=== PATIENT | male | born 1940 | race Caucasian/White ===

== ENCOUNTER 2016-07-21 16:17 | Inpatient (IN) ==
--- NOTE | 2016-07-21 16:37 | Emergency Department Note ---
Disposition Clinical Impression: Ischemia of extremity Pain in extremity Qualifiers: Extremity pain location: lower leg Laterality: left Qualified Code(s): M79.662 - Pain in left lower leg Disposition: Admitted As Inpatient Condition: Critical Extremity Problem HPI - General Chief complaint: ED Extremity Problem,Nontraumatic Stated complaint: R/O DVT L leg Time Seen by Provider: 07/21/16 16:29 Source: patient, EMS Limitations: no limitations Nursing Notes Reviewed: Yes Vital Signs Reviewed: Yes - History of Present Illness HPI Narrative: Mr. Hancock, a 76yo male, presents from [place] via EMS with concern of a left lower extremity pain, cyanosis, and cold. Onset 5 days ago. PMH: COPD, peripheral artery disease, obstructive sleep apnea, peripheral neuropathy, pain disorder, anxiety, antisocial personality disorder, hypertension, chronic opioid dependence, lumbar degenerative joint disease, BPH. No history of ACS or CJD. Patient notes he was recently diagnosed with lung cancer. He is currently in the early stages of being worked up and no chemotherapy plan has been established yet. PSH: bilateral femoral-popliteal bypass performed at this facility by Dr. García. Habits: Current every smoker; one pack per day 60 years Antiplatelet: Aspirin 81 mg by mouth daily. Anticoagulant: None ROS: Positive:Lt LE pain with cyanosis Neg: Fever, chills, nausea, vomiting, chest pains, palpitations, new back pains , unusual dyspnea, hemoptysis, hematochezia, melena Pain Scale: 8 - Related Data Home Medications Medication Instructions Recorded Confirmed Albuterol Neb [Proventil Neb] 2.5 mg IH Q8H 07/21/16 07/21/16 Albuterol Sulfate [Albuterol 2 puff IH QID PRN 07/21/16 07/21/16 Inhaler] Ammonium Lactate [Macarena-Hydrolac] 1 appl TP DAILY 07/21/16 07/21/16 Aspirin Enteric Coated [Aspirin EC] 81 mg PO DAILY 07/21/16 07/21/16 Bisacodyl [Dulcolax] 10 mg PO TID PRN 07/21/16 07/21/16 Budesonide/Formoterol 160/4.5 2 puff IH BIDR 07/21/16 07/21/16 [Symbicort 160/4.5] Diclofenac Sodium [Voltaren] 2 gm TP BID PRN 07/21/16 07/21/16 Furosemide [Lasix] 20 mg PO DAILY 07/21/16 07/21/16 Gabapentin [Neurontin] 600 mg PO TID 07/21/16 07/21/16 Lisinopril [Zestril] 40 mg PO DAILY 07/21/16 07/21/16 Oxycodone HCl [Roxicodone 30 MG 30 mg PO Q6HR PRN 07/21/16 07/21/16 Immed Release] Sildenafil Citrate [Viagra] 100 mg PO AD PRN 07/21/16 07/21/16 Tamsulosin [Flomax] 0.8 mg PO DAILY 07/21/16 07/21/16 Terbinafine HCl [Terbinafine] 1 appl TP BID PRN 07/21/16 07/21/16 Tiotropium [Spiriva] 18 mcg IH QAM 07/21/16 07/21/16 Allergies Allergy/AdvReac Type Severity Reaction Status Date / Time fentanyl Allergy See Verified 07/21/16 16:22 Comments morphine Allergy See Verified 07/21/16 16:22 Comments All systems ED: reviewed and negative except as stated. Past Medical History - Past Medical History Medical history: Reports: COPD, hypertension, peripheral artery disease Psychiatric history: Reports: anxiety - Social History Smoking Status: Current every day smoker Smokeless Tobacco Status: No Alcohol use: Reports: none Drug use: Reports: none Physical Exam Vital Signs Reviewed General: Patient is alert, oriented, and in no acute distress. HEENT: No facial asymmetry. Head is normocephalic and atraumatic. PERRLA. Trachea midline. Cardiovascular: Heart regular rate and rhythm without clicks, rubs, gallops, or murmurs. No JVD. PMI nondisplaced. Bilateral radial pulses 2/4. Right posterior tibial pulse 2/4. Left posterior tibial, distal cells pedis, and popliteal pulses unable to palpate. Left femoral pulse week. Left toes have 6 second capillary refill. Left lower extremity is cool to touch from toes to mid calf. Respiratory: Symmetric chest rise with good respiratory effort. Prolonged expiratory phase. Bilateral breath sounds have scattered diffuse wheezes without crackles or rhonchi. Abdomen: Bowel sounds present normoactive x-4 quadrants. Abdomen is soft, nondistended, and nontender. No organomegaly noted. Psych: Patient's affect is appropriate for situation. - General Limitations: no limitations General appearance: alert, in no apparent distress Course Course Narrative: [facility] brachial 125, right dorsalis pedis 118, right posterior tibial 126-right DYLAN 0.93. Left brachial 136, left Dorsalis pedis unmeasurable, left posterior tibial on measurable. No lab work or imaging studies provided by the [facility]. Chart check required digging into PCI to show 2014 bilateral femoral-popliteal bypass performed by Dr. Guillen. Patient is agreeable on to admission if needed. 16:45-spoke with [facility] relations vice president vascular surgery, Dr. García, who agrees to accept the patient to a 2N bed. He requests CT a aorta with runoff and weight-based heparin. 1800-patient's return from CT scan. He notes his left lower extremity pain is worse after the IV contrast. Initial dose of Dilaudid, he notes, did not improve his pain. We will re-dose. This is likely due to his chronic opiate use. Vital Signs Temperature 98.2 F 07/21/16 16:23 Pulse Rate 65 07/21/16 16:23 Respiratory Rate 17 07/21/16 16:23 Blood Pressure 109/84 07/21/16 16:23 O2 Sat by Pulse Oximetry 95 07/21/16 16:23 Temperature 97.8 F 07/21/16 18:53 Pulse Rate 56 07/21/16 18:53 Respiratory Rate 17 07/21/16 18:55 Blood Pressure 132/76 07/21/16 18:55 O2 Sat by Pulse Oximetry 95 07/21/16 18:53 Oxygen Delivery Oxygen Delivery Nasal Cannula Extremity Problem, Nontraumati - Medical Records Medical records reviewed: Yes I reviewed the patient's medical records. - Lab Data Result diagrams: 07/21/16 16:57 07/21/16 16:57 Lab Results 07/21/16 07/21/16 07/21/16 Range/Units 16:57 16:57 16:57 WBC 8.4 (4.3-11.1) K/mcL RBC 4.31 (4.19-5.50) M/mcL Hgb 13.7 (12.9-16.9) g/dL Hct 40.8 (37.5-50.1) % MCV 94.7 (83.0-100.0) fL MCH 31.8 (28.0-33.3) pg MCHC 33.6 (31.6-35.5) g/dL RDW 11.8 (11.5-14.5) % Plt Count 226 (140-400) K/mcL MPV 9.6 (9.4-12.4) fL Immature Gran % 0.2 (0-4) % Seg Neutrophils % 53.0 % Lymphocytes % 35.3 % Monocytes % 7.7 % Eosinophils % 3.2 % Basophils % 0.6 % Neutrophils # 4.5 (1.6-8.9) K/mcL Lymphocytes # 3.0 (0.6-4.6) K/mcL Monocytes # 0.7 (0.0-1.3) K/mcL Eosinophils # 0.3 (0.0-0.6) K/mcL Basophils # 0.1 (0.0-0.2) K/mcL PT 11.6 (9.4-12.1) Seconds INR 1.1 APTT 28.2 (26.0-36.0) Seconds Sodium 142 (136-145) mEq/L Potassium 4.0 (3.5-4.5) mEq/L Chloride 106 (98-109) mEq/L Carbon Dioxide 28 (19-29) mEq/L BUN 30 H (8-26) mg/dL Creatinine 1.39 H (0.72-1.25) mg/dL Est GFR ( Amer) > 60 (> 60) Est GFR (Non-Af Amer) 50 L (> 60) BUN/Creatinine Ratio 22 (6-26) Glucose 115 H (70-99) mg/dL Calculated Osmolality 301 H (280-300) Calcium 9.2 (8.6-10.8) mg/dL - EKG Data EKG attestation: Yes I reviewed and interpreted this EKG. EKG results narrative: EKG dated O2 08/09/1715: 21 interpreted as sinus rhythm with a rate of 62. Normal intervals. 74, QRS 83, QT/QTc 389/395. Normal axis. Nonspecific ST T changes. No previous EKG for comparison. Attestation Statement - Attestation Attestation: I examined this patient and my medical decision-making was reviewed with the FULFILLMENT COORDINATOR/PA/Advanced Practice Nurse/Resident Physician. I agree with the documented findings, disposition and treatment plan as described except to the extent set forth below. pulseless left leg. [facility] resident spoke to vascular surgeon dr garcía. he has accepted. will start heparin. obtain CTA aortogram with run off.
[2016-07-21] MEDS ORDERED: *HR* HYDROmorphone (PF) 1 MG/ML SYRINGE IVP ONE ×2 (16:43→17:57)
[2016-07-21] MEDS ORDERED: Heparin 25,000 UNIT/500 ML D5W 25,000 UNIT/500 ML MLS IVC SCH ×2 (16:45→18:32)
[2016-07-21 17:04] LABS: Basophils # 0.1 K/mcL (0.0-0.2); Basophils % 0.6 %; Eosinophils # 0.3 K/mcL (0.0-0.6); Eosinophils % 3.2 %; Hematocrit 40.8 % (37.5-50.1); Hemoglobin 13.7 g/dL (12.9-16.9); Immature Granulocytes % 0.2 % (0-4); Lymphocytes % 35.3 %; Mean Corpuscular HGB Conc 33.6 g/dL (31.6-35.5); Mean Corpuscular Hemoglobin 31.8 pg (28.0-33.3); Mean Corpuscular Volume 94.7 fL (83.0-100.0); Mean Platelet Volume 9.6 fL (9.4-12.4); Monocytes # 0.7 K/mcL (0.0-1.3); Monocytes % 7.7 %; Neutrophils # 4.5 K/mcL (1.6-8.9); Platelet Count 226 K/mcL (140-400); Red Blood Count 4.31 M/mcL (4.19-5.50); Red Cell Distribution Width 11.8 % (11.5-14.5)
[2016-07-21 17:13] LABS: INR 1.1; Prothrombin Time 11.6 Seconds (9.4-12.1)
[2016-07-21 17:16] LABS: Activated Partial Thrombo Time 28.2 Seconds (26.0-36.0); BUN/Creatinine Ratio 22 (6-26); Blood Urea Nitrogen 30 mg/dL (8-26); Calcium 9.2 mg/dL (8.6-10.8); Carbon Dioxide 28 mEq/L (19-29); Chloride 106 mEq/L (98-109); Glucose 115 mg/dL (70-99); Osmolality,Calculated 301 (280-300); Sodium 142 mEq/L (136-145); eGFR For African Americans > 60 (> 60); eGFR For Non-African Americans 50 (> 60)
--- NOTE | 2016-07-21 17:30 | Vascular/Endovascular H&P ---
Date of Encounter: 07/21/16 Time of Encounter: 17:20 Assessment and Plan (1) Ischemia of extremity Current Visit: Yes Status: Acute The patient presents with what appears to be an acute on chronic left lower extremity limb ischemia. He also has had left femoral infrageniculate popliteal bypass. We will plan on placing him on weight dosed heparin as well as CTA aortogram with runoff to assist in operative planning. History of Present Illness Chief complaint: Left leg pain HPI: Mr. Hancock is a 76 year old male Who underwent left infrageniculate femoral-popliteal bypass in 2014. He was seen during the postoperative period in the office and the graft was patent. He states that 2-3 days ago he developed pain in this left lower extremity. Today he presents to the emergency department with a [facility] It is noted that he has recently been diagnosed with lung cancer and is currently undergoing workup and staging. On physical examination his left lower extremity is cold from the mid calf down. He is able to move his toes. There is no tissue loss. He now presents for evaluation of critical limb ischemia. This appears to be acute on chronic Past Med Surg Social Fam HX - Past Medical History Medical history: COPD, hypertension, peripheral artery disease Psychiatric history: anxiety - Past Surgical History Surgical History: other (Left femoral infrageniculate popliteal bypass) - Social History Smoking Status: Current every day smoker Smokeless Tobacco Status: No Alcohol use: none Drug use: none Medications and Allergies Albuterol Neb [Proventil Neb] 2.5 mg IH Q8H 07/21/16 [History] Albuterol Sulfate [Albuterol Inhaler] 2 puff IH QID PRN 07/21/16 [History] Ammonium Lactate [Macarena-Hydrolac] 1 appl TP DAILY 07/21/16 [History] Aspirin Enteric Coated [Aspirin EC] 81 mg PO DAILY 07/21/16 [History] Bisacodyl [Dulcolax] 10 mg PO TID PRN 07/21/16 [History] Budesonide/Formoterol 160/4.5 [Symbicort 160/4.5] 2 puff IH BIDR 07/21/16 [ History] Diclofenac Sodium [Voltaren] 2 gm TP BID PRN 07/21/16 [History] Furosemide [Lasix] 20 mg PO DAILY 07/21/16 [History] Gabapentin [Neurontin] 600 mg PO TID 07/21/16 [History] Lisinopril [Zestril] 40 mg PO DAILY 07/21/16 [History] Oxycodone HCl [Roxicodone 30 MG Immed Release] 30 mg PO Q6HR PRN 07/21/16 [ History] Sildenafil Citrate [Viagra] 100 mg PO AD PRN 07/21/16 [History] Tamsulosin [Flomax] 0.8 mg PO DAILY 07/21/16 [History] Terbinafine HCl [Terbinafine] 1 appl TP BID PRN 07/21/16 [History] Tiotropium [Spiriva] 18 mcg IH QAM 07/21/16 [History] Allergies fentanyl Allergy (Verified 07/21/16 16:22) See Comments morphine Allergy (Verified 07/21/16 16:22) See Comments All Systems Review: A 10-system review of systems was performed and is negative for pertinent findings except as documented above in the HPI. Exam General: Present: No Apparent Distress HEENT: Present: Trachea midline, Pupils equal Cardiac: Present: Reg Rate and Rhythm, Normal S1 and S2, No Murmur Lungs: Present: Other (Moderate decrease in lung volumes and wheezing in both lung rubi) Neuro: Present: Alert and responsive, No focal deficits noted Abdomen: Present: Soft, Non-tender Vascular: Present: Other (Left foot cool and pale) Results 07/21/16 16:57 07/21/16 16:57
[2016-07-21] MEDS ORDERED: *HR* Heparin 5,000 UNIT/ML VIAL IVP PRN ×2 (18:32)
[2016-07-21] MEDS ORDERED: Naloxone 0.4 MG/ML INJ IVP PRN (18:32)
[2016-07-21] MEDS ORDERED: *HR* Heparin 5,000 UNIT/ML VIAL IVP ONE (18:32)
[2016-07-21] MEDS ORDERED: Albuterol 2.5 MG/3 ML NEBULIZER IH SCH (18:32)
[2016-07-21] MEDS ORDERED: *HR* HYDROcodone/Acet 5/325 mg TABLET PO PRN (18:32)
[2016-07-21] MEDS ORDERED: 0.9 % Sodium Chloride 1,000 ML IVC SCH (18:32)
[2016-07-21] MEDS: *HR* HYDROmorphone (PF) 1 MG/ML SYRINGE IVP PRN ×2 (20:25→23:45)
[2016-07-21] MEDS: Gabapentin 300 MG CAPSULE PO SCH (20:26)
[2016-07-21] MEDS: Albuterol 2.5 MG/3 ML NEBULIZER IH SCH (23:25)
[2016-07-21] MEDS: Budesonide/Formoterol 160/4.5 MDI IH SCH (23:25)
[2016-07-21 23:56] LABS: Activated Partial Thrombo Time 210.1 Seconds (26.0-36.0)
[2016-07-22 00:17] LABS: Heparin anti-factor XA UFH 1.12 IU/mL (0.30-0.70)
[2016-07-22] MEDS: *HR* HYDROmorphone (PF) 1 MG/ML SYRINGE IVP PRN ×6 (01:20→09:00)
[2016-07-22 01:53] LABS: Basophils % 0.5 %; Eosinophils # 0.3 K/mcL (0.0-0.6); Eosinophils % 3.9 %; Hematocrit 38.7 % (37.5-50.1); Immature Granulocytes % 0.4 % (0-4); Mean Corpuscular HGB Conc 33.6 g/dL (31.6-35.5); Mean Corpuscular Hemoglobin 31.7 pg (28.0-33.3); Mean Corpuscular Volume 94.4 fL (83.0-100.0); Mean Platelet Volume 9.4 fL (9.4-12.4); Monocytes # 0.7 K/mcL (0.0-1.3); Monocytes % 8.1 %; Platelet Count 225 K/mcL (140-400); Red Cell Distribution Width 11.9 % (11.5-14.5); Segmented Neutrophils % 50.1 %
[2016-07-22 02:05] LABS: Calcium 8.8 mg/dL (8.6-10.8); Potassium 4.4 mEq/L (3.5-4.5)
[2016-07-22 02:24] LABS: Activated Partial Thrombo Time 59.1 Seconds (26.0-36.0)
[2016-07-22 02:26] LABS: INR 1.1; Prothrombin Time 12.3 Seconds (9.4-12.1)
--- NOTE | 2016-07-22 07:01 | Event Note ---
Date of Encounter: 07/22/16 Time of Encounter: 06:30 I personally reviewed the CTA aortogram with runoff. The left common and external iliac is occluded. The femoral-femoral bypass graft is occluded. The common femoral, superficial femoral and popliteal is occluded. The profunda is patent. a short segment of tibial peroneal trunk is patent with no distal runoff. This is very disappointing and reconstruction is questionable. I think it is reasonable to declot the fem-fem to provide inflow to the left leg via the profunda. The distal runoff is not reconstructable. We will plan fem- fem inflow to the left profunda and observation. Amputation risk is high
[2016-07-22] MEDS: Budesonide/Formoterol 160/4.5 MDI IH SCH ×2 (07:57→23:08)
[2016-07-22] MEDS: Albuterol 2.5 MG/3 ML NEBULIZER IH SCH ×3 (07:57→23:08)
[2016-07-22] MEDS: Gabapentin 300 MG CAPSULE PO SCH ×3 (08:04→21:15)
[2016-07-22] MEDS ORDERED: Lisinopril 20 MG TABLET PO SCH (09:00)
[2016-07-22] MEDS ORDERED: Furosemide 20 MG TABLET PO SCH (09:00)
--- NOTE | 2016-07-22 09:25 | Anesthesia Evaluation PreOp ---
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 History: Denies Any Significant HX Other Medical History: Renal (CKD) Anesthesia History: No Prior Anesthetic Complications Alcohol Use: none Drug use: none Medications and Allergies Albuterol Neb [Proventil Neb] 2.5 mg IH Q8H 07/21/16 [History] Albuterol Sulfate [Albuterol Inhaler] 2 puff IH QID PRN 07/21/16 [History] Ammonium Lactate [Macarena-Hydrolac] 1 appl TP DAILY 07/21/16 [History] Aspirin Enteric Coated [Aspirin EC] 81 mg PO DAILY 07/21/16 [History] Bisacodyl [Dulcolax] 10 mg PO TID PRN 07/21/16 [History] Budesonide/Formoterol 160/4.5 [Symbicort 160/4.5] 2 puff IH BIDR 07/21/16 [ History] Diclofenac Sodium [Voltaren] 2 gm TP BID PRN 07/21/16 [History] Furosemide [Lasix] 20 mg PO DAILY 07/21/16 [History] Gabapentin [Neurontin] 600 mg PO TID 07/21/16 [History] Lisinopril [Zestril] 40 mg PO DAILY 07/21/16 [History] Oxycodone HCl [Roxicodone 30 MG Immed Release] 30 mg PO Q6HR PRN 07/21/16 [ History] Sildenafil Citrate [Viagra] 100 mg PO AD PRN 07/21/16 [History] Tamsulosin [Flomax] 0.8 mg PO DAILY 07/21/16 [History] Terbinafine HCl [Terbinafine] 1 appl TP BID PRN 07/21/16 [History] Tiotropium [Spiriva] 18 mcg IH QAM 07/21/16 [History] Allergies fentanyl Allergy (Verified 07/21/16 16:22) See Comments morphine Allergy (Verified 07/21/16 16:22) See Comments - Meds/Allergy Pre-op Review Medications Reviewed: Yes Allergies Reviewed: Yes Beta Blockers on Current Med List: No Anesthesia Results - Labs 07/22/16 01:44 07/22/16 01:44 - Imaging EKG: report reviewed (SR) Anesthesia Exam O2 Sat Height 1.78 m Weight 70.035 kg Weight 70.307 kg O2 Sat by Pulse Oximetry 97 O2 Sat by Pulse Oximetry 94 O2 Sat by Pulse Oximetry 98 O2 Sat by Pulse Oximetry 95 O2 Sat by Pulse Oximetry 95 O2 Sat by Pulse Oximetry 97 O2 Sat by Pulse Oximetry 97 O2 Sat by Pulse Oximetry 95 Vital Signs Temp Pulse Resp BP Pulse Ox 98.2 F 65 17 109/84 95 07/21/16 16:23 07/21/16 16:23 07/21/16 16:23 07/21/16 16:23 07/21/16 16:23 Height: 5'10 Weight: 154 lbs NPO (# of Hours): MN Pain Scale: 0 - HEENT Pupil (Motor): Pupils equal, EOMI Mallampati: III Teeth: Edentulous Oral Opening: Less than or equal to 3 - [employer]ISON [employer]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
[2016-07-22] MEDS ORDERED: Heparin 1,000 UNITS/500 mL NS 1,000 ML ONE (09:26)
[2016-07-22] MEDS ORDERED: *HR* Alteplase (Cathflo) 2 MG VIAL IVP ONE ×2 (09:30→12:29)
[2016-07-22] MEDS ORDERED: *HR* Propofol 200 MG/20 ML VIAL IVP ONE (09:31)
[2016-07-22] MEDS ORDERED: Acetaminophen IV 1,000 MG/100 ML INFUS..BTL ONE (09:33)
[2016-07-22] MEDS ORDERED: Famotidine 20 MG/2 ML VIAL ONE (09:33)
[2016-07-22] MEDS ORDERED: *HR* FentaNYL (PF) 100 MCG/2 ML VIAL ONE (09:35)
[2016-07-22] MEDS ORDERED: Lidocaine -MPF 2% 2 ML VIAL ONE (09:36)
[2016-07-22] MEDS ORDERED: Ondansetron 4 MG/2 ML VIAL ONE (09:36)
[2016-07-22] MEDS ORDERED: EPHEDrine 50 MG/ML VIAL ONE (10:08)
[2016-07-22] MEDS ORDERED: *HR* Heparin 5,000 UNIT/ML VIAL ONE (10:54)
[2016-07-22] MEDS ORDERED: *HR* HYDROmorphone (PF) 1 MG/ML SYRINGE IVP PRN ×2 (11:40→12:29)
--- NOTE | 2016-07-22 11:40 | Operative Note ---
Date of procedure: 07/22/16 Pre-op diagnosis: Left critical limb ischemia. Occluded left femoral femoral bypass graft Post-op diagnosis: same Procedure: Femoral-femoral bypass graft thrombectomy. Revision of femoral-femoral bypass graft Anesthesia: ELLIOTT Surgeon: Mark Crowder Estimated blood loss (cc): 250 Specimen: Thrombus Condition: stable Disposition: PACU Procedure in Detail: After informed consent the patient was taken to the major operative suite and placed in supine position and given adequate general anesthetic. The left leg circumferentially in both groins are prepped and draped in sterile fashion utilizing Betadine solution standard draping techniques. Timeout was taken patient was identified lateralizing selina was identified. I made a groin incision through the previous scar and dissected down to the level of the femoral-femoral bypass graft. I dissected out the femoral-femoral bypass graft. I dissected out the common femoral artery, profunda femoris, superficial femoral artery, and femoral infrageniculate popliteal bypass graft. During the dissection I made a venotomy in the femoral vein where it was attached to the previous dissection on the backside of the femoral infrageniculate bypass graft. This venotomy was closed with 3 interrupted stitches of 4-0 Prolene. 150 mL blood loss for this portion of the operation in 100 mL blood loss for the arterial portion. The patient was on weight dosed And drip I gave 2000 additional units. The femoral tibial bypass graft was divided and found to be chronically occluded. There is no fresh thrombus. Thrombectomy was not attempted. I amputated 3 cm graft so that this would not interfere with reconstruction. The superficial femoral was known to be occluded. My plan was to revise the femoral-femoral bypass graft in such way that I would create a cobra francis that covered the orifice of the profunda femoris after thrombectomy. I fashioned the PTFE so that this cobra francis would be appropriate length for this anatomic arrangement. Once this was done I performed thrombectomy down the profunda femoris. There was no clot in the profunda femoris. I performed thrombectomy of the femoral-femoral bypass graft and obtained tremendous inflow from the right groin. There was no evidence of thrombus in the graft. After this was done I used 5-0 Prolene to affix the cobra francis of the femoral-femoral bypass graft to the femoral arteriotomy extending slightly onto the superficial femoral artery. This gave an excellent technical result. All vessels were back bled and forward flushed. I initiated flow first to the common femoral artery and iliac and finally to the profunda femoris. Doppler was brought on the field. Flow was tremendous into the profunda femoris. I am hopeful that the femoral-femoral occlusion was the acute occlusion in the femoral infrageniculate popliteal was the chronic occlusion. If this is the case this should result in limb salvage. We will watch carefully for any signs of persistent ischemia. Distal reconstruction is unlikely. All vessels demonstrated good hemostasis. The wound was irrigated with copious amounts of antibiotic containing solution. Wound was closed in 2 layers with interrupted Vicryl and skin clips
[2016-07-22] MEDS ORDERED: Naloxone 0.4 MG/ML INJ IVP PRN (12:29)
[2016-07-22] MEDS ORDERED: *HR* Heparin 5,000 UNIT/ML VIAL IVP PRN ×2 (12:29)
[2016-07-22] MEDS ORDERED: *HR* HYDROcodone/Acet 5/325 mg TABLET PO PRN (12:29)
--- NOTE | 2016-07-22 13:19 | Anesthesia Evaluation Post Op ---
Date of Encounter: 07/22/16 Time of Encounter: 13:15 - Vital Signs Vital Signs: Vital Signs/O2 Sat/Glucose, Most Current Temp Pulse Resp BP Pulse Ox 07/22/16 12:59 65 14 166/81 93 07/22/16 12:18 97.8 F 65 16 160/70 92 07/22/16 12:08 71 14 157/79 92 07/22/16 11:58 69 16 156/76 92 07/22/16 11:48 98.2 F 74 18 154/81 94 - Lungs Lungs: Clear Ascult./Percussion - Airway Airway: Non-obstructed - Cardiovascular Regular Rate - Mental Status Mental Status: Alert & Oriented, Answers Appropriately - Pain Pain Scale: 0 - Nausea Vomiting Nausea Vomiting: Not Present - Hydration Hydration: Ice chips - Discharge PostOp Status: Transfer Patient to floor
[2016-07-22] MEDS: *HR* HYDROmorphone 20 MG/20 ML PCA IVC PRN (13:34)
[2016-07-22] MEDS: 0.9 % Sodium Chloride 1,000 ML IVC SCH (13:35)
[2016-07-22] MEDS: Heparin 25,000 UNIT/500 ML D5W 25,000 UNIT/500 ML MLS IVC SCH (14:32)
[2016-07-23] MEDS: *HR* HYDROmorphone 20 MG/20 ML PCA IVC PRN ×2 (00:22→16:23)
[2016-07-23] MEDS: 0.9 % Sodium Chloride 1,000 ML IVC SCH ×2 (04:49→16:25)
[2016-07-23 06:21] LABS: BUN/Creatinine Ratio 26 (6-26); Blood Urea Nitrogen 23 mg/dL (8-26); Carbon Dioxide 26 mEq/L (19-29); Chloride 109 mEq/L (98-109); Glucose 123 mg/dL (70-99); Osmolality,Calculated 295 (280-300); Potassium 4.2 mEq/L (3.5-4.5); Sodium 140 mEq/L (136-145); eGFR For African Americans > 60 (> 60); eGFR For Non-African Americans > 60 (> 60)
[2016-07-23] MEDS: Heparin 25,000 UNIT/500 ML D5W 25,000 UNIT/500 ML MLS IVC SCH (07:00)
[2016-07-23] MEDS: Albuterol 2.5 MG/3 ML NEBULIZER IH SCH ×3 (07:52→22:50)
[2016-07-23] MEDS: Budesonide/Formoterol 160/4.5 MDI IH SCH ×2 (07:52→22:50)
[2016-07-23] MEDS ORDERED: *HR* Warfarin 10 MG TABLET PO ONE (08:10)
[2016-07-23] MEDS: Furosemide 20 MG TABLET PO SCH (08:49)
[2016-07-23] MEDS: Lisinopril 20 MG TABLET PO SCH (08:49)
[2016-07-23] MEDS: Gabapentin 300 MG CAPSULE PO SCH ×3 (08:49→21:31)
[2016-07-23] MEDS ORDERED: diazePAM 5 MG TABLET PO ONE (10:40)
[2016-07-23] MEDS ORDERED: diazePAM 5 MG TABLET PO PRN (10:40)
--- NOTE | 2016-07-23 13:20 | General Surgery Progress Note ---
Date of Encounter: 07/23/16 Time of Encounter: 07:00 - Assessment and Plan (1) Ischemia of extremity Current Visit: Yes Status: Resolved POD #1 for; femoral-femoral bypass graft thrombectomy, revision of occluded left femoral bypass graft with Dr. Crowder on 07/22/16. Patient initially presented for left critical limb ischemia due to occluded left femoral-femoral bypass graft. [facility] brachial 125, right dorsalis pedis 118, right posterior tibial 126-right DYLAN 0.93. Left brachial 136, left Dorsalis pedis unmeasurable, left posterior tibial on measurable. On arrival his pulses were nonpalpable and his distal extremity was cold. Aorta w/Runoff CTA 07/21/16 16:41 IMPRESSION: 1. 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 Thready flow reconstitutes in the left common femoral artery and supplies the left deep femoral artery. A fem-fem and left fem-distal bypass graft are occluded, as is the [place] left superficial femoral artery. Minimal flow is seen in the mid left popliteal artery, which is occluded distally. A small amount of flow is seen in the proximal left anterior tibial artery. No significant flow is seen in the left distal calf and foot arteries. 2. Diffuse atherosclerotic disease in the left superficial femoral artery, with possible moderate stenoses in its mid and distal portion. Three-vessel runoff to the right foot. 3. Severe atherosclerotic disease in the distal aorta. 4. Severe emphysema. Supportive care and pain control IV fluids to maintain hydration at 75 ml per hour Incentive spirometer every 1 hour while awake Repeat am labs: I/O's Serial lower extremity exams Vital signs per protocol Elevate head of bed to 30 degrees Daily dressing change- complete today PPI therapy daily DVT prophylaxis continue heparin Encourage up to chair twice a day. Ambulate with assistance today. We will continue to follow and assess for progression. Start Coumadin 10 mg today. Repeat morning labs and reevaluate. Coumadin 5 mg tomorrow Plan to discontinue heparin drip when patient is therapeutic. Will adjust dose as necessary based on INR with target INR of 2-3. The assessment and plan as outlined above was discussed with the patient and/or family members who expressed understanding and agreement. All questions were answered. Subjective Patient reports: no new complaints, feels better, pain is less, voiding w/o difficulty, flatus, bowel movement, afebrile Narrative: The patient was seen and examined. No acute events overnight. On physical examination patient is able to wiggle his toes, has good coloration of his left lower extremity, pulses are palpable. Patient is in good spirits and is very thankful for his care and that he make it to keep his leg. Patient is restless and ready to leave the hospital as soon as possible. Discussed with patient that we will begin Coumadin therapy and discontinue heparin as he reaches therapeutic levels. Patient will need to stay in the hospital 1-2 more days. Importance of morning labs discussed. Importance of ambulation and smoking cessation discussed. Objective Vital Signs - Last 8 Hours Temp Pulse Resp BP Pulse Ox 07/23/16 11:02 98.1 F 66 16 134/73 92 07/23/16 10:56 66 94 07/23/16 10:05 65 89 07/23/16 08:24 81 91 07/23/16 07:53 98.4 F 57 18 106/64 96 07/23/16 07:52 18 94 Intake and Output 07/22/16 07/23/16 07/23/16 23:59 07:59 15:59 Intake Total 96 / 96 1374 / 1374 240 / 240 Output Total 135 / 135 635 / 635 70 / 70 Balance -39 / -39 739 / 739 170 / 170 Intake: IV Fluids 96 / 96 1134 / 1134 0.9 % Sodium Chloride 1, 1000 / 1000 000 ML @ 75 mls/hr IVC . [id number] CHARISSA Rx#: [id number] Heparin 25,000 UNIT/500 96 / 96 134 / 134 ML D5W 25,000 unit In 500 ml @ 14 UNIT/KG/HR 19. 686 mls/hr IVC .Q24H CHARISSA Rx#:[id number] Oral 240 / 240 240 / 240 Output: Urine 135 / 135 135 / 135 70 / 70 Urethral (Villarreal) 135 / 135 135 / 135 70 / 70 Catheter 500 / 500 Other: Meal Dinner Breakfast Percent of Meal Consumed 50% 100% - General physical appearance well developed, well nourished, no distress, moderate pain - Eyes PERRL, normal ocular movement - ENT normal nares, normal mucosa, atraumatic, normocephalic, CN 2-12 grossly intact - Neck Neck exam: trachea midline, no venous distension - Respiratory normal expansion, normal respiratory effort, clear to auscultation - Cardiovascular Cardiovascular exam: Present: RRR, no murmurs/rubs/gallops. Absent: JVD - Abdomen Abdomen: Present: bowel sounds present, soft, non tender - Incision Incision: Present: clean and dry, intact - Integumentary no rash, no abnormal pigmentation, other (Left lower extremity pulses palpable and limb with good coloration and warmth) - Neurologic CN 2-12 grossly intact, normal coordination - Musculoskeletal normal posture - Psychiatric oriented to time, oriented to person, oriented to place, speech is normal, memory intact - Labs 07/22/16 01:44 07/23/16 04:53 Diabetes panel 07/23/16 Range/Units 04:53 Sodium 140 (136-145) mEq/L Potassium 4.2 (3.5-4.5) mEq/L Chloride 109 (98-109) mEq/L Carbon Dioxide 26 (19-29) mEq/L BUN 23 (8-26) mg/dL Creatinine 0.88 (0.72-1.25) mg/dL Glucose 123 H (70-99) mg/dL Calcium 8.0 L (8.6-10.8) mg/dL Calcium panel 07/23/16 Range/Units 04:53 Calcium 8.0 L (8.6-10.8) mg/dL Pituitary panel 07/23/16 Range/Units 04:53 Sodium 140 (136-145) mEq/L Potassium 4.2 (3.5-4.5) mEq/L Chloride 109 (98-109) mEq/L Carbon Dioxide 26 (19-29) mEq/L BUN 23 (8-26) mg/dL Creatinine 0.88 (0.72-1.25) mg/dL Glucose 123 H (70-99) mg/dL Calcium 8.0 L (8.6-10.8) mg/dL Adrenal panel 07/23/16 Range/Units 04:53 Sodium 140 (136-145) mEq/L Potassium 4.2 (3.5-4.5) mEq/L Chloride 109 (98-109) mEq/L Carbon Dioxide 26 (19-29) mEq/L BUN 23 (8-26) mg/dL Creatinine 0.88 (0.72-1.25) mg/dL Glucose 123 H (70-99) mg/dL Calcium 8.0 L (8.6-10.8) mg/dL - VTE Documentation of Mechanical Device: Intermittent pneumatic compression device Consult Discharge Plan - Plan Referrals: [facility] [Primary Care Provider] - - Attending Attestation I examined this patient and my medical decision-making was reviewed with the AUDIT MANAGER/PA/Advanced Practice Nurse/Resident Physician. I agree with the documented findings, disposition and treatment plan as described except to the extent set forth below. The patient is seen and evaluated on morning rounds. His foot is no longer cold. His foot is pink but still has delayed capillary refill. He is able to move his toes. The Doppler pulses are detectable in the foot but not palpable. This is an acceptable result for no named blood vessels patent to the foot. He has profunda femoris and a short segment of tibial peroneal trunk and anterior tibial artery patent all of the vessels were occluded. Collateral flow. There is no runoff to the foot. Mark Crowder MD FACS
--- NOTE | 2016-07-23 15:10 | Event Note ---
<Dayana James - Last Filed: 07/23/16 14:44> Date of Encounter: 07/23/16 Time of Encounter: 14:44 At 14:17 Nurse paged to inform me that patient had removed his own bentley and was bleeding from his penis. Per nurse report when she went to evaluate he was up at the bed urinating into hand held urinal and tugging at his IV. The bentley was on the other side of the bed with the bulb deflated. Earlier today he was getting out of bed without assistance and refusing to cooperate with nursing staff to use his call light ambulating without assistance despite being told several times that for his safety he needed to use the call light. I examined the patient at 14:25. I explained to the patient that fighting staff and breaking the rules may result in further harm to himself and may prolong his stay. For his safety, I encouraged him to work with staff to promote his well being and healing. Patient states he just wanted to use a real toilet and not the poop dow. On examination of his male genitalia: penile shaft appeared normal without edema ,ecchymosis, or other evidence of trauma; circumcised, glans penis was without edema; there was no active bleeding coming from the urethra, however the urethra appeared erythematous and the patient was holding a was cloth that he had used to compress the glans/urethral meatus during the oozing incident with minimal 5cc or less bleeding, normal appearing testicles. Patient stated he had urinated and it burned a little at first. Patient is on heparin and Coumadin. Will re-evaluate patient later to monitor for possible complications of bleeding. At this time hemostasis was easily achieved by compression. May have internal urethral trauma. Will notify Dr. Crowder of incident. <Mark Crowder - Last Filed: 07/24/16 07:21> Date of Encounter: 07/24/16 I examined this patient and my medical decision-making was reviewed with the ATTENDANT LODGING [employer]ACILITIES/PA/Advanced Practice Nurse/Resident Physician. I agree with the documented findings, disposition and treatment plan as described except to the extent set forth below. The patient is seen and evaluated after the above incident. He has had progressive disorientation but seems calmed down when physicians are in the room area it appears as though his left foot is salvageable and [facility]. We will continue with Coumadin for adjunct to graft patency Mark Crowder MD FACS
[2016-07-24] MEDS: 0.9 % Sodium Chloride 1,000 ML IVC SCH ×2 (06:28→20:16)
--- NOTE | 2016-07-24 07:35 | Vascular/[facility] Progress Note ---
Date of Encounter: 07/24/16 Time of Encounter: 07:00 - Assessment and plan (1) Ischemia of extremity Current Visit: Yes Status: Resolved POD #1 for; femoral-femoral bypass graft thrombectomy, revision of occluded left femoral bypass graft with Dr. Crowder on 07/22/16. Patient initially presented for left critical limb ischemia due to occluded left femoral-femoral bypass graft. [facility] right brachial 125, right dorsalis pedis 118, right posterior tibial 126-right DYLAN 0.93. Left brachial 136, left Dorsalis pedis unmeasurable, left posterior tibial on measurable. On arrival his pulses were nonpalpable and his distal extremity was cold. Aorta w/Runoff CTA 07/21/16 16:41 IMPRESSION: 1. 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 Thready flow reconstitutes in the left common femoral artery and supplies the left deep femoral artery. A fem-fem and left fem-distal bypass graft are occluded, as is the [place] left superficial femoral artery. Minimal flow is seen in the mid left popliteal artery, which is occluded distally. A small amount of flow is seen in the proximal left anterior tibial artery. No significant flow is seen in the left distal calf and foot arteries. 2. Diffuse atherosclerotic disease in the left superficial femoral artery, with possible moderate stenoses in its mid and distal portion. Three-vessel runoff to the right foot. 3. Severe atherosclerotic disease in the distal aorta. 4. Severe emphysema. Supportive care and pain control IV fluids to maintain hydration at 75 ml per hour Incentive spirometer every 1 hour while awake Repeat am labs: I/O's Serial lower extremity exams Vital signs per protocol Elevate head of bed to 30 degrees Daily dressing change- complete today PPI therapy daily DVT prophylaxis continue heparin Encourage up to chair twice a day. Ambulate with assistance today. We will continue to follow and assess for progression. Start Coumadin 10 mg today. Repeat morning labs and reevaluate. Coumadin 5 mg tomorrow Plan to discontinue heparin drip when patient is therapeutic. Will adjust dose as necessary based on INR with target INR of 2-3. The assessment and plan as outlined above was discussed with the patient and/or family members who expressed understanding and agreement. All questions were answered. 07/24/2016 and the patient was seen and evaluated today. He had episodes of disorientation last evening. He seems to be well oriented today. We will plan on checking his INR today and adjusting his Coumadin. He should be able to go to the [facility] for continued care today or tomorrow. - Subjective Interval history: The patient has had disorientation throughout the evening. He has become combative with staff and pulled his Villarreal catheter out. This morning he is oriented to person place and time. His foot is warm and pink however he is having some pain. The distal tibial vessels are non-reconstructable. He appears to have limb salvage after femoral-femoral I passed thrombectomy and revision of the femoral-femoral bypass anastomosis in the left groin maximizing flow to the profunda femoris. He is currently on Coumadin. We will check his INR today. [facility] be [facility] tomorrow Vital Signs, Last 4 Hours Temp Pulse Resp BP 07/24/16 05:05 98.1 F 89 16 94/63 - Physical Examination General: Present: No Apparent Distress HEENT: Present: Pupils equal Cardiac: Present: Reg Rate and Rhythm, Normal S1 and S2, No Murmur Lungs: Present: Normal Breath Sounds, No Wheeze, Rales, Rhonchi Vascular: Present: Other (Incision is in good condition his left foot is warm and pink) - VTE Documentation of Mechanical Device: Intermittent pneumatic compression device Results 07/22/16 01:44 07/23/16 04:53 Lab Results, Last 24 hours 07/23/16 07/24/16 15:16 03:15 APTT 44.2 H 46.0 H Consult Discharge Plan - Plan Referrals: [facility] [Primary Care Provider] -
--- NOTE | 2016-07-24 07:37 | Discharge Summary ---
Date of Encounter: 07/25/16 Time of Encounter: 07:00 - Discharge Diagnosis (1) Ischemia of extremity Priority: Primary Status: Resolved Comments: Critical left lower extremity limb ischemia secondary to occluded [place] iliac femoral popliteal and tibial system as well as occlusion of femoral-femoral and femoral tibial bypass graft. The patient underwent thrombectomy of the femoral- femoral bypass graft and revision of the left profunda anastomosis - Discharge Medications Prescriptions: Warfarin [Coumadin] 5 mg PO 1800 #30 tablet Home Medications: Albuterol Neb [Proventil Neb] 2.5 mg IH Q8H 07/21/16 [History] Albuterol Sulfate [Albuterol Inhaler] 2 puff IH QID PRN 07/21/16 [History] Ammonium Lactate [[place]-Hydrolac] 1 appl TP DAILY 07/21/16 [History] Aspirin Enteric Coated [Aspirin EC] 81 mg PO DAILY 07/21/16 [History] Bisacodyl [Dulcolax] 10 mg PO TID PRN 07/21/16 [History] Budesonide/Formoterol 160/4.5 [Symbicort 160/4.5] 2 puff IH BIDR 07/21/16 [ History] Diclofenac Sodium [Voltaren] 2 gm TP BID PRN 07/21/16 [History] Furosemide [Lasix] 20 mg PO DAILY 07/21/16 [History] Gabapentin [Neurontin] 600 mg PO TID 07/21/16 [History] Lisinopril [Zestril] 40 mg PO DAILY 07/21/16 [History] Oxycodone HCl [Roxicodone 30 MG Immed Release] 30 mg PO Q6HR PRN 07/21/16 [ History] Sildenafil Citrate [Viagra] 100 mg PO AD PRN 07/21/16 [History] Tamsulosin [Flomax] 0.8 mg PO DAILY 07/21/16 [History] Terbinafine HCl [Terbinafine] 1 appl TP BID PRN 07/21/16 [History] Tiotropium [Spiriva] 18 mcg IH QAM 07/21/16 [History] Warfarin [Coumadin] 5 mg PO 1800 #30 tablet 07/24/16 [Rx] Allergies/Adverse Reactions: Allergies fentanyl Allergy (Verified 07/21/16 16:22) See Comments morphine Allergy (Verified 07/21/16 16:22) See Comments Procedures/tests Complete & Pending: Procedures Performed prior 72 hours Category Date Time Status ECG 12 lead ECG [ECG] Routine Y 07/22/16 07:53 Completed Date of admission: 07/21/16 17:02 Primary care physician: PCP ANNIKA Consults: 07/23/16 14:40 Consult to Occupational Therapy [CONS] Routine Comment: Evaluate, develop and implement POC Reason for Consult: Recent left lower limb surgery Consult to Physical Therapy [CONS] Routine Comment: Evaluate, develop and implement POC Reason for Consult: recent left lower limb surgery Procedure(s) Performed: Femoral-femoral graft thrombectomy and revision. Tibial level vessels non- reconstructable Discharging clinician: Mark Crowder Anticipated date of discharge: 07/25/16 - Patient Status Disposition: Transfer Inpatient Rehab Fac Condition: Fair Functional capacity at discharge: uses cane/walker Overall status at discharge: patient is progressing back to baseline - Discharge Instructions Follow Up With: ANNIKA,PCP [Primary Care Provider] - 08/03/16 10:15 am - Diet and Activity Activity: as per physical therapy Diet: advance to your usual diet - Hospital Course Hospital course: Mr. Hancock is a 76 year old male Time spent discussing smoking cessation with patient: 3 to 10 minutes - Time Spent with Patient Total time spent providing and/or coordinating discharge services: Less than 30 minutes Specific discharge activities: Arrange placement at the [facility] for continued therapy as well as arrange follow-up for anticoagulation management Exam Vital Signs, Last 4 Hours Temp Pulse Resp BP 07/24/16 05:05 98.1 F 89 16 94/63 General: Present: No Apparent Distress Cardiac: Present: Reg Rate and Rhythm, Normal S1 and S2, No Murmur Lungs: Present: Normal Breath Sounds, No Wheeze, Rales, Rhonchi Abdomen: Present: Soft, Non-tender Vascular: Present: Other (Left foot warm and pink) - VTE Documentation of Mechanical Device: Intermittent pneumatic compression device
--- NOTE | 2016-07-24 07:39 | Electrocardiograph Report ---
[address] [address] Test Date: 2016-07-21 Pat Name: Jonathan Hancock Department: 102 Room: 2N12 Gender: M Race Steward: Priya : 1940 Requested By: Nadeem Britt Order Number: [id number] Reading MD: Anthony Haywood MD Measurements Intervals [place] Rate: 62 P: 58 MI: 174 QRS: 34 QRSD: 83 T: 58 QT: 389 QTc: 395 Interpretive Statements SINUS RHYTHM Electronically Signed On 07-24-2016 7:37:37 EDT by Anthony Haywood MD
[2016-07-24 07:55] LABS: INR 1.4
[2016-07-24] MEDS: Budesonide/Formoterol 160/4.5 MDI IH SCH ×2 (07:57→22:22)
[2016-07-24] MEDS: Albuterol 2.5 MG/3 ML NEBULIZER IH SCH ×3 (07:57→22:22)
[2016-07-24] MEDS: Lisinopril 20 MG TABLET PO SCH (08:31)
[2016-07-24] MEDS: Furosemide 20 MG TABLET PO SCH (08:32)
[2016-07-24] MEDS: Gabapentin 300 MG CAPSULE PO SCH ×3 (08:32→20:17)
--- NOTE | 2016-07-24 09:44 | Physician Discharge Referral ---
ExtendedCare Referral Info Transfer To: ID Provider in Charge: [facility] Provider in Charge after Transfer: PCP Institutional Level of Care: Intermediate - MR - Diagnosis (1) Ischemia of extremity Priority: Primary Status: Resolved Expected Duration of Placement: 6 weeks Prognosis: Fair Aware of Diagnosis: Patient Aware of Prognosis: Patient - Transfer Medications Prescriptions: Warfarin [Coumadin] 5 mg PO 1800 #30 tablet Home Medications: Albuterol Neb [Proventil Neb] 2.5 mg IH Q8H 07/21/16 [History] Albuterol Sulfate [Albuterol Inhaler] 2 puff IH QID PRN 07/21/16 [History] Ammonium Lactate [[place]-Hydrolac] 1 appl TP DAILY 07/21/16 [History] Aspirin Enteric Coated [Aspirin EC] 81 mg PO DAILY 07/21/16 [History] Bisacodyl [Dulcolax] 10 mg PO TID PRN 07/21/16 [History] Budesonide/Formoterol 160/4.5 [Symbicort 160/4.5] 2 puff IH BIDR 07/21/16 [ History] Diclofenac Sodium [Voltaren] 2 gm TP BID PRN 07/21/16 [History] Furosemide [Lasix] 20 mg PO DAILY 07/21/16 [History] Gabapentin [Neurontin] 600 mg PO TID 07/21/16 [History] Lisinopril [Zestril] 40 mg PO DAILY 07/21/16 [History] Oxycodone HCl [Roxicodone 30 MG Immed Release] 30 mg PO Q6HR PRN 07/21/16 [ History] Sildenafil Citrate [Viagra] 100 mg PO AD PRN 07/21/16 [History] Tamsulosin [Flomax] 0.8 mg PO DAILY 07/21/16 [History] Terbinafine HCl [Terbinafine] 1 appl TP BID PRN 07/21/16 [History] Tiotropium [Spiriva] 18 mcg IH QAM 07/21/16 [History] Warfarin [Coumadin] 5 mg PO 1800 #30 tablet 07/24/16 [Rx] Allergies/Adverse Reactions: Allergies fentanyl Allergy (Verified 07/21/16 16:22) See Comments morphine Allergy (Verified 07/21/16 16:22) See Comments - Respiratory Orders Oxygen / L per min (2 liters) Smoking Cessation: Smoking cessation has been advised. For more information, call the [place] Tobacco Quit Line at 7-794-MGCH-NOW. - Ancillary Orders May use pressure relief devices daily prn, May go on BO w/family/respon republican w /meds at nurse discretion PRN, May have alcoholic beverages, May consult with Dentist, Hand Spring Repairer Helper, Battery Mechanic PRN - Advance Directives Living Will: No Power of Police Superintendent: No Code Status: Full Code - Mobility Orders Ambulate - Rehabiliation Orders Rehab Potential: Fair Rehab Orders: Evaluation for Physical Therapy, Evaluation for Occupational Therapy Other: anticoagulation management - Treatments Skin tear care topically daily PRN per policy, May check for fecal impaction rectally daily PRN, Fleet enema rectally every other day PRN cleansing purposes - Diet Orders Regular CERTIFICATION: I certify that the transfer of the above named patient to an Extended Care Facility is necessary for the continuing treatment of the diagnosis listed. The above information is true and accurate reflection of patient's current condition. Confidential - Redisclosure prohibited without a patient's written consent.
[2016-07-24] MEDS: *HR* OxyCODONE Immed Rel 15 MG TABLET PO PRN ×2 (12:52→21:39)
[2016-07-24] MEDS: *HR* Enoxaparin 80 MG/0.8 ML SYRINGE SQ SCH (15:52)
[2016-07-24] MEDS ORDERED: *HR* Warfarin 5 MG TABLET PO SCH (18:00)
[2016-07-25] MEDS: *HR* Enoxaparin 80 MG/0.8 ML SYRINGE SQ SCH (05:49)
--- NOTE | 2016-07-25 07:13 | Event Note ---
Date of Encounter: 07/25/16 Time of Encounter: 07:00 The patient was seen and evaluated. His left foot is pink and warm. [facility] He should be maintained on Coumadin and his INR adjusted to the range between 2.0 and 3.0. He should be on subcutaneous Lovenox until the INR is within this range. I will be glad to see him in return clinic evaluation office in 2 weeks. [facility] evaluation forms are reviewed and completed.
[2016-07-25 07:38] VITALS: BP 164/75
[2016-07-25] MEDS: Albuterol 2.5 MG/3 ML NEBULIZER IH SCH (07:44)
[2016-07-25] MEDS: Budesonide/Formoterol 160/4.5 MDI IH SCH (07:44)
[2016-07-25 08:00] LABS: INR 1.5; Prothrombin Time 16.2 Seconds (9.4-12.1)
[2016-07-25] MEDS: Furosemide 20 MG TABLET PO SCH (08:16)
[2016-07-25] MEDS: Lisinopril 20 MG TABLET PO SCH (08:16)
[2016-07-25] MEDS: Gabapentin 300 MG CAPSULE PO SCH (08:17)
[2016-07-25] MEDS: *HR* OxyCODONE Immed Rel 15 MG TABLET PO PRN (08:24)
== END 2016-07-25 13:57 | DRG 253 ==
LOC: EMEROO 16:17 → 2NNU 17:02
PROVIDERS: ADMIT Surgery; ATTEND Surgery

== ENCOUNTER 2016-12-21 07:53 | Inpatient (IN) ==
[2016-12-21] MEDS ORDERED: Albuterol 2.5 MG/3 ML NEBULIZER IH ONE (08:12)
--- NOTE | 2016-12-21 08:17 | Anesthesia Evaluation PreOp ---
Date of Encounter: 12/21/16 Time of Encounter: 08:14 - Past History Planned Operation: Left Fem-Tib In situ bypass Cardiac History: AL ( remote 20+ years ago), HTN, Hyperlipidemia, Other (PVD, Multiple blood clots Bilat. LE's) Pulmonary History: Smoker, Pack/yr (1/2 ppd x 60 Years), COPD, DALE Dx, Other ( Lung CA - Left Upper lobe nodule) [employer] History: Denies Any Significant HX Other Medical History: Renal (CRD ?- Cr - .87), Other Anesthesia History: No Prior Anesthetic Complications (Ischemic Left Lower Extremity), Past Anesthesia (Left Fem-pop bypass 06/03, Fem-pop bypass 08/05) Alcohol Use: none Drug use: none Medications and Allergies Albuterol Neb [Proventil Neb] 2.5 mg IH Q8H 07/21/16 [History] Albuterol Sulfate [Albuterol Inhaler] 2 puff IH QID PRN 07/21/16 [History] Ammonium Lactate [Macarena-Hydrolac] 1 appl TP DAILY 07/21/16 [History] Aspirin Enteric Coated [Aspirin EC] 81 mg PO DAILY 07/21/16 [History] Bisacodyl [Dulcolax] 10 mg PO TID PRN 07/21/16 [History] Budesonide/Formoterol 160/4.5 [Symbicort 160/4.5] 2 puff IH BIDR 07/21/16 [ History] Diclofenac Sodium [Voltaren] 2 gm TP BID PRN 07/21/16 [History] Furosemide [Lasix] 20 mg PO DAILY 07/21/16 [History] Gabapentin [Neurontin] 600 mg PO TID 07/21/16 [History] Lisinopril [Zestril] 40 mg PO DAILY 07/21/16 [History] Oxycodone HCl [Roxicodone 30 MG Immed Release] 30 mg PO Q6HR PRN 07/21/16 [ History] Sildenafil Citrate [Viagra] 100 mg PO AD PRN 07/21/16 [History] Tamsulosin [Flomax] 0.8 mg PO DAILY 07/21/16 [History] Tiotropium [Spiriva] 18 mcg IH QAM 07/21/16 [History] Chlorhexidine Rinse 15 ml MM BID 12/21/16 [History] Cholecalciferol (Vitamin D3) [Vitamin D] 1,000 unit PO DAILY 12/21/16 [History] Clopidogrel [Plavix] 75 mg PO DAILY 12/21/16 [History] Nitroglycerin [Nitrolingual] 0.4 ml TL Q5M PRN 12/21/16 [History] 3 Allergy/AdvReac Type Severity Reaction Status Date / Time fentanyl Allergy Fatigued Verified 12/21/16 08:13 morphine Allergy Fatigued Verified 12/21/16 08:13 - Meds/Allergy Pre-op Review Medications Reviewed: Yes Allergies Reviewed: Yes Beta Blockers on Current Med List: No Anesthesia Results - Labs Laboratory Tests 07/25/16 12/13/16 12/13/16 07:39 16:20 16:20 WBC 8.5 Hgb 12.8 L Hct 38.6 Plt Count 262 INR 1.5 Sodium 144 Potassium 3.9 Chloride 111 H Carbon Dioxide 26 BUN 21 Creatinine 0.87 - Imaging EKG: image reviewed (SR) Anesthesia Exam Height: 5'6'' Weight: 159# NPO (# of Hours): > 8 hrs Pain Scale: 0 Pain Scale Used: Numeric (1 - 10) - HEENT Pupil (Motor): Pupils equal, EOMI Mallampati: III Teeth: Edentulous Oral Opening: Greater than 3 - [employer] LOC: Oriented [employer] Motor: Normal RUE, Normal LUE, Normal RLE, Normal LLE, Normal Face [employer] Sensory: Normal: RUE, LUE, RLE, LLE, Face - Cardiac Rhythm: Regular Murmur: None JVD: No Carotid Bruit: No - Pulmonary Breath Sounds: bilateral Clear Respiratory Effort: Symmetrical Anesthesia Assess/Plan ASA Score: 3 Modified Purvis Scale for Level of Consciousness: Cooperative, oriented, and tranquil Anesthetic Plan: General Autologous Blood: Yes Monitoring Plan: Standard Monitors Recovery Plan: PACU
[2016-12-21] MEDS: Ringers Solution, Lactated 1,000 ML IVC SCH ×3 (08:40→16:54)
[2016-12-21] MEDS ORDERED: *HR* FentaNYL (PF) 100 MCG/2 ML VIAL ONE (08:41)
[2016-12-21] MEDS ORDERED: *HR* Propofol 200 MG/20 ML VIAL IVP ONE (08:41)
[2016-12-21] MEDS ORDERED: *HR* Succinylcholine 200 MG/10 ML VIAL IVP ONE (08:44)
[2016-12-21] MEDS ORDERED: Lidocaine -MPF 2% 2 ML VIAL ONE (08:44)
--- NOTE | 2016-12-21 08:55 | History & Physical Report ---
Date of Encounter: 12/21/16 Time of Encounter: 08:50 24 Hour HP Update - Instructions Instructions: If the History and Physical is less than 30 days old and was completed prior to A.M. admission and or procedure and has NOT been updated on calendar day of procedure please complete this update prior to performing procedure. - Update Patient reports changes in Medical Condition: No Changes in examination, assessment, or condition: No Changes in Medication: No Preop tests/diagnostics Reviewed: Yes Surgery Remains Indicated: Yes Consent for Planned Operative Procedure(s) Verified: Yes - Pre-Operative Checklist Preoperative Checklist Indicated: Yes Prophylactic Antibiotic Ordered: Yes Home Medications Include Beta Andry: No Is VTE Prophylaxis Indicated?: Yes
[2016-12-21] MEDS ORDERED: CeFAZolin Syr 2,000MG/20 ML 2,000 MG/20 ML SYRINGE IVPB ONE (09:02)
[2016-12-21] MEDS ORDERED: Heparin 1,000 UNITS/500 mL NS 500 ML ONE (09:10)
[2016-12-21] MEDS ORDERED: *HR* Vasopressin 20 UNIT/ML VIAL ONE (09:15)
[2016-12-21] MEDS ORDERED: *HR* EPINEPHrine 1 MG/ML AMPUL ONE (09:19)
[2016-12-21] MEDS ORDERED: *HR* Rocuronium Bromide 50 MG/5 ML VIAL ONE (10:08)
[2016-12-21] MEDS ORDERED: *HR* Heparin 5,000 UNIT/ML VIAL ONE ×2 (11:54→11:56)
[2016-12-21] MEDS ORDERED: *HR* OxyCODONE/APAP 5/325 TABLET PO PRN ×2 (12:39→15:43)
[2016-12-21] MEDS ORDERED: Ipratropium/Albuterol Neb 3 ML IH ONE ×2 (12:45→15:43)
[2016-12-21] MEDS ORDERED: Ondansetron 4 MG/2 ML VIAL IVP ONE ×2 (12:45→15:43)
[2016-12-21] MEDS ORDERED: *HR* Promethazine 25 MG/ML VIAL IVP PRN ×2 (12:45→15:43)
[2016-12-21] MEDS ORDERED: *HR* HYDROmorphone 2 MG/ML SYRINGE ONE (13:20)
[2016-12-21] MEDS ORDERED: *HR* HYDROmorphone (PF) 1 MG/ML SYRINGE IVP PRN ×2 (13:35→15:43)
[2016-12-21] MEDS ORDERED: Naloxone 0.4 MG/ML INJ IVP PRN ×2 (13:35→15:43)
[2016-12-21] MEDS ORDERED: *HR* HYDROcodone/Acet 5/325 mg TABLET PO PRN ×2 (13:35→15:43)
[2016-12-21] MEDS ORDERED: 0.9 % Sodium Chloride 1,000 ML IVC SCH (13:45)
--- NOTE | 2016-12-21 13:50 | Operative Note ---
Date of procedure: 12/21/16 Pre-op diagnosis: Ischemic left lower extremity Post-op diagnosis: same Procedure: Left femoral tibial in situ bypass Anesthesia: ELLIOTT Surgeon: Mark Crowder Estimated blood loss (cc): 200 Condition: stable Disposition: PACU Procedure in Detail: After informed consent patient was taken to the major operative suite and placed in the supine position and given adequate general endotracheal anesthesia. Villarreal catheter was placed. Both groins and the circumferential left leg were prepped and draped in sterile fashion utilizing Betadine solution standard draping techniques. Timeout was taken. The lateralizing selina was identified. The patient was identified. I started in the left groin. This is the third time the left groin was dissected. Made an oblique incision through the old incision and dissected down to the previously placed femoral-femoral bypass graft which terminated into the profunda femoris. Once this was dissected free I dissected the proximal saphenous vein. Since this is a third time dissection the overall dissection took nearly an hour. At the end of the dissection I felt that the saphenous vein was amenable for bypass I then turned my attention to the distal dissection. I opened the old incision and extended this distally. I identified the saphenous vein that was just above the old incision. This was somewhat scarred. I was concerned that this may not be adequate for bypass. I then dissected out the end of the operative to artery the proximal anterior tibial artery and the tibial peroneal trunk. I decided the tibial peroneal trunk was amenable to bypass with relatively little plaque compared to the popliteal artery. I surrounded the tibial peroneal trunk, anterior tibial, and distal popliteal artery with Vesseloops. Then dissected out several more centimeters of saphenous vein and divided the saphenous vein. I hydrostatically dilated saphenous vein that I was concerned about and I was satisfied that I can get at least 2-1/2 mm and maybe 3 mm in size I judged this to be adequate. I decided to proceed with femoral tibial in situ bypass. I exposed the entire length of the saphenous vein. Once this was done the patient was heparinized with 5000 units of heparin. I divided the saphenous vein branches and divided the saphenous vein off the femoral vein using a running 4-0 Prolene to close the femoral vein. I then clamped the femoral- femoral bypass graft with a Prasanna-Hydragrip and clamped the profunda with a profunda clamp. I removed a circular segment of graft material at the francis. I tested the inflow. There was excellent flow in the femoral-femoral bypass graft. I then used 2.8 magnification to create a proximal anastomosis between the saphenous vein and the femoral-femoral bypass graft just before it entered the profunda femoris. 5-0 Prolene was used and this gave an excellent technical result. The saphenous vein was immediately pulsatile down to the first valve which is about 2 cm. I then passed a 2.0 valvulotome. Valvulotomy was performed from proximal to distal. I then passed a 2.5 valvulotome. This was pexed proximal to distal removing the valves and each time I encountered valve I rotated 90 degrees and then 180 degrees to make sure the valves were fully lysed. This gave an excellent technical result. I then opened the tibial peroneal trunk. I fashioned the arteriotomy in such a way that the heel of the saphenous vein would overlie the takeoff of the anterior tibial artery. 2.8 magnification and 6-0 Prolene was used to create the anastomosis between the saphenous vein and the tibial peroneal trunk. Prior to closure I reinstated flow. I was not happy with the flow through the graft. I passed a 3 Prasanna the entire length of the graft and no clot was removed. Pulsatile flow was now tremendous and I completed the arterial closure. There was no bleeding at the proximal or distal. I started flow to the tibials and then listened with a Doppler. There was tremendous augmentation of triphasic flow in the anterior tibial and tibial peroneal trunk. This was judged to be in excellent technical result. I then used a Doppler technique to identify any remaining branches and the saphenous vein. I visually clipped 4 or 5 branches then used the Doppler and found 3 more branches. There was no Doppler flow within the graft was occluded and this was judged to be in excellent technical result. I irrigated with copious amounts of antibiotic containing solution. I injected 60 mL of quarter percent Marcaine for local anesthetic. The wound was closed in multiple layers with interrupted Vicryl and the skin with skin clips.
[2016-12-21] MEDS ORDERED: Ringers Solution, Lactated 500 ML IVC ONE (13:58)
[2016-12-21] MEDS: *HR* HYDROmorphone (PF) 1 MG/ML SYRINGE IVP PRN ×2 (14:07→14:12)
[2016-12-21] MEDS ORDERED: Calcium Gluconate 2,000 MG in D5% in Water 100 ML IVPB STA (14:17)
--- NOTE | 2016-12-21 15:36 | Anesthesia Evaluation Post Op ---
Date of Encounter: 12/21/16 Time of Encounter: 15:35 - Vital Signs Vital Signs: Selected Entries 12/21/16 15:25 Temperature 97.6 F Pulse Rate 58 Respiratory Rate 12 Blood Pressure 126/63 O2 Sat by Pulse Oximetry 99 Oxygen Flow Rate (LPM) 2 - Lungs Lungs: Clear Ascult./Percussion - Airway Airway: Non-obstructed - Cardiovascular Regular Rate - Mental Status Mental Status: Sedated (but arouses) - Pain Pain Scale: 0 Pain Scale used: Numeric (1 - 10) - Nausea Vomiting Nausea Vomiting: Not Present - Hydration Hydration: Ice chips, Villarreal catheter - Discharge PostOp Status: Transfer Patient to floor
[2016-12-21] MEDS ORDERED: Nitroglycerin Spray 4.9 GM BOTTLE TL PRN (15:43)
[2016-12-21] MEDS ORDERED: Diclofenac Sodium [Voltaren] 2 GM TP PRN (15:43)
[2016-12-21] MEDS ORDERED: CeFAZolin Pre 2,000 MG/100 ML 2,000 MG/100 ML BAG IVPB SCH (16:00)
[2016-12-21] MEDS ORDERED: CeFAZolin Premix DUPLEX 2,000 MG/50 ML BAG IVPB SCH (16:00)
[2016-12-21] MEDS: Gabapentin 300 MG CAPSULE PO SCH ×2 (17:00→20:25)
[2016-12-21] MEDS: 0.9 % Sodium Chloride 1,000 ML IVC SCH (17:00)
[2016-12-21] MEDS: *HR* OxyCODONE Immed Rel 15 MG TABLET PO SCH ×2 (17:00→20:25)
[2016-12-21] MEDS: *HR* Heparin 5,000 UNIT/ML VIAL SQ SCH (17:01)
[2016-12-21] MEDS: ceFAZolin 2,000 MG in D5% in Water 100 ML IVPB SCH (17:01)
[2016-12-21] MEDS ORDERED: *HR* Heparin 5,000 UNIT/ML VIAL SQ SCH (18:00)
[2016-12-21] MEDS: Albuterol 2.5 MG/3 ML NEBULIZER IH SCH ×3 (18:41→22:58)
[2016-12-21] MEDS: Budesonide/Formoterol 160/4.5 MDI IH SCH (20:35)
[2016-12-22] MEDS: *HR* OxyCODONE Immed Rel 15 MG TABLET PO SCH ×5 (00:11→20:43)
[2016-12-22] MEDS: ceFAZolin 2,000 MG in D5% in Water 100 ML IVPB SCH (00:12)
[2016-12-22] MEDS: *HR* HYDROmorphone (PF) 1 MG/ML SYRINGE IVP PRN (05:49)
[2016-12-22] MEDS: *HR* Heparin 5,000 UNIT/ML VIAL SQ SCH ×2 (05:50→17:18)
[2016-12-22] MEDS: Budesonide/Formoterol 160/4.5 MDI IH SCH ×2 (07:49→21:34)
[2016-12-22] MEDS: Tiotropium 18 MCG inhalation IH SCH (07:50)
[2016-12-22] MEDS: Albuterol 2.5 MG/3 ML NEBULIZER IH SCH ×3 (07:52→21:41)
[2016-12-22] MEDS: 0.9 % Sodium Chloride 1,000 ML IVC SCH (08:02)
[2016-12-22] MEDS: Lisinopril 20 MG TABLET PO SCH (08:02)
[2016-12-22] MEDS: Gabapentin 300 MG CAPSULE PO SCH ×3 (08:02→20:36)
[2016-12-22] MEDS: Furosemide 20 MG TABLET PO SCH (08:02)
[2016-12-22] MEDS: Aspirin Enteric Coated 81 MG Tablet PO SCH (08:03)
--- NOTE | 2016-12-22 11:27 | General Surgery Progress Note ---
<Sophy Olmstead - Last Filed: 12/22/16 11:28> Date of Encounter: 12/22/16 Time of Encounter: 10:50 - Assessment and Plan (1) Ischemia of extremity Current Visit: No Status: Resolved Date of procedure: 12/21/16 Pre-op diagnosis: Ischemic left lower extremity Post-op diagnosis: same Procedure: Left femoral tibial in situ bypass POD #1, patient states increased left lower extremity discomfort and is able to quantify this as after surgery discomfort. His presurgical discomfort has resolved. He reports his discomfort is not controlled on the current regimen however he has not asked for his PRN pain medication. His postsurgical exam is unremarkable at this time. Plan: 1. Continue discomfort management and supportive care. 2. Add scheduled Toradol Q6 hours 3. Continue G.I. and DVT prophylaxis 4. Continue aspirin Plavix 5. Patiently shower. Surgical incision may be left open to air or covered with dry dressing for comfort. 6. PT/OT following. Patient has not been out of bed nor ambulated since surgical procedure. Per record review he has had 2 missed visits with PT/OT. Spoke with bedside RN and requested patient medicated for comfort and PT/OT comeback to the bedside for the eval and treat. 7. Eileen CRAIG, following along for DC planning. Per patient he typically goes to [facility] approximately [facility] for short rehab. DC planning per social work and PT/OT. (2) Need for follow up care after discharge from healthcare facility Current Visit: Yes Status: Acute See above for PT/OT and case management. (3) Chronic pain Current Visit: Yes Status: Chronic Resume home chronic pain medication. Qualifiers: Chronic pain type: other chronic pain Qualified Code(s): G89.29 - Other chronic pain (4) DVT prophylaxis Current Visit: Yes Status: Acute Ambulate TID with assistance. ASA, Plavix, heparin injection 5000 units subkey b.i.d. (5) Physical deconditioning Current Visit: Yes Status: Acute See above. Subjective Patient reports: no new complaints, still having pain, tolerating a regular diet , voiding w/o difficulty, flatus, no bowel movement, afebrile Objective Vital Signs - Last 8 Hours Temp Pulse Resp BP Pulse Ox 12/22/16 07:54 20 95 12/22/16 07:40 83 12/22/16 06:52 99.5 F 102 20 116/72 95 12/22/16 03:57 98.7 F 73 15 119/70 94 Intake and Output 12/21/16 12/22/16 12/22/16 23:59 07:59 15:59 Intake Total 100 / 100 1200 / 1200 450 / 450 Output Total 350 / 350 625 / 625 500 / 500 Balance -250 / -250 575 / 575 -50 / -50 Intake: IV Fluids 100 / 100 1000 / 1000 0.9 % Sodium Chloride 1,000 ML 1000 / 1000 @ 75 mls/hr IVC .[id number] CHARISSA Rx #:[id number] Ancef 2,000 MG In Dextrose 5% 100 / 100 100 ML @ 200 mls/hr IVPB Q8HR CHARISSA Rx#:[id number] Oral 200 / 200 450 / 450 Output: Urine 500 / 500 Catheter 350 / 350 625 / 625 Other: Meal Breakfast Percent of Meal Consumed 100% Weight 77.1 kg Patient Weight 12/22/16 23:59 Weight 77.1 kg - General physical appearance no distress, moderate pain - Eyes normal ocular movement - ENT atraumatic, normocephalic - Neck Neck exam: trachea midline, no venous distension - Respiratory other (Decreased bilateral breath sounds) - Cardiovascular Cardiovascular exam: Present: RRR, murmurs Addtional Comments: Distal pulses intact. Bilateral lower extremities are W/P/D. - Abdomen Abdomen: Present: bowel sounds present, soft, non tender - Incision Incision: Present: clean and dry, intact - Integumentary no rash, no growths - Neurologic normal sensation - Musculoskeletal normal posture - Psychiatric oriented to time, oriented to person, oriented to place, speech is normal, memory intact Consult Discharge Plan - Plan Referrals: Mark Crowder MD [Partnered Physician] - 01/03/17 4:05 pm [facility] [Primary Care Provider] - (PATIENT IS HOME BASE CARE, THEY GO TO HIS HOUSE TO SEE HIM) <Mark Crowder - Last Filed: 12/22/16 13:56> Date of Encounter: 12/22/16 Objective Vital Signs - Last 8 Hours Temp Pulse Resp BP Pulse Ox 12/22/16 12:01 63 12/22/16 07:54 20 95 12/22/16 07:40 83 12/22/16 06:52 99.5 F 102 20 116/72 95 Intake and Output 12/21/16 12/22/16 12/22/16 23:59 07:59 15:59 Intake Total 100 / 100 1200 / 1200 726 / 726 Output Total 350 / 350 625 / 625 1000 / 1000 Balance -250 / -250 575 / 575 -274 / -274 Intake: IV Fluids 100 / 100 1000 / 1000 276 / 276 0.9 % Sodium Chloride 1,000 ML 1000 / 1000 276 / 276 @ 75 mls/hr IVC .[id number] CHARISSA Rx #:[id number] Ancef 2,000 MG In Dextrose 5% 100 / 100 100 ML @ 200 mls/hr IVPB Q8HR CHARISSA Rx#:[id number] Oral 200 / 200 450 / 450 Output: Urine 1000 / 1000 Catheter 350 / 350 625 / 625 Other: Meal Breakfast Percent of Meal Consumed 100% Weight 77.1 kg Patient Weight 12/22/16 23:59 Weight 77.1 kg - Attending Attestation I have personally performed a face to face evaluation on this patient. I have reviewed and agree with the care plan. History and Exam by me shows: The patient is seen and evaluated on morning rounds. Discussed findings with our clinical nurse practitioner. He has excellent pulses in his foot. His foot is warm and pain. If his pain control is adequate, he can return to rehabilitation [facility] the [facility] this afternoon. If his pain is in inadequate control stay 1-2 more days. Mark Crowder MD FACS
[2016-12-22] MEDS: Ketorolac 15 MG/ML VIAL IVP SCH ×2 (11:47→17:18)
[2016-12-22] MEDS: Ringers Solution, Lactated 1,000 ML IVC SCH (15:00)
[2016-12-23] MEDS: Ketorolac 15 MG/ML VIAL IVP SCH ×4 (00:08→18:05)
[2016-12-23] MEDS: *HR* OxyCODONE Immed Rel 15 MG TABLET PO SCH ×5 (02:58→20:55)
[2016-12-23] MEDS: *HR* Heparin 5,000 UNIT/ML VIAL SQ SCH ×2 (05:44→18:05)
[2016-12-23] MEDS: *HR* HYDROmorphone (PF) 1 MG/ML SYRINGE IVP PRN (05:45)
[2016-12-23] MEDS: Budesonide/Formoterol 160/4.5 MDI IH SCH ×2 (07:54→22:26)
[2016-12-23] MEDS: Albuterol 2.5 MG/3 ML NEBULIZER IH SCH ×3 (07:54→22:27)
[2016-12-23] MEDS: Tiotropium 18 MCG inhalation IH SCH (07:55)
[2016-12-23] MEDS: Furosemide 20 MG TABLET PO SCH (08:11)
[2016-12-23] MEDS: Aspirin Enteric Coated 81 MG Tablet PO SCH (08:11)
[2016-12-23] MEDS: Gabapentin 300 MG CAPSULE PO SCH ×3 (08:11→20:55)
[2016-12-23] MEDS: Lisinopril 20 MG TABLET PO SCH (08:12)
--- NOTE | 2016-12-23 11:02 | General Surgery Progress Note ---
Date of Encounter: 12/23/16 Time of Encounter: 09:30 - Assessment and Plan (1) Need for follow up care after discharge from healthcare facility Current Visit: Yes Status: Acute Patient is POD 2 of left femoral tibial in situ bypass. Procedure was performed on 12/21/[address] Crowder. Patient's presurgical discomfort has resolved. Patient reports that he still feels some pain in his leg, however it is improved. There is some redness present along the medial side of patient's left leg. Incision runs up the course of patient's entire left leg. There is no drainage or evidence of infection. Incision is clean, dry, and intact. Plan: -Continue discomfort management and supportive care: Percocet, Toradol, Dilaudid for pain control. -GI and DVT prophylaxis. -Continue aspirin and Plavix. -PTOT has been consult. He has missed several PTOT appointments. -Social work has been consulted for discharge planning. Plan is to discharge patient to the [facility] on Sunday. (2) Chronic pain Current Visit: Yes Status: Chronic Patient's chronic pain medication has been resumed. Qualifiers: Chronic pain type: other chronic pain Qualified Code(s): G89.29 - Other chronic pain (3) DVT prophylaxis Current Visit: Yes Status: Acute Ambulate 3 times a day with assistance. -ASA, Plavix, heparin subcutaneous 5000 every 12. (4) Physical deconditioning Current Visit: Yes Status: Acute Subjective Patient reports: feels better, still having pain, pain is less, no bowel movement Narrative: Patient was seen and examined events at this morning. Patient reports that he still is having some pain in his left leg, but his pain is improving. He denies having nausea, vomiting, fever, chills, weakness. Patient denies having any bowel movements. He has no complaints at this time. Objective Vital Signs - Last 8 Hours Temp Pulse Resp BP Pulse Ox 12/23/16 08:18 54 12/23/16 06:58 98.0 F 54 18 112/62 96 12/23/16 03:32 98.2 F 51 16 101/78 96 Intake and Output 12/22/16 12/23/16 12/23/16 23:59 07:59 15:59 Intake Total 240 / 240 360 / 360 120 / 120 Output Total 150 / 150 Balance 90 / 90 360 / 360 120 / 120 Intake: Oral 240 / 240 360 / 360 120 / 120 Output: Urine 150 / 150 Other: Meal Dinner Breakfast Percent of Meal Consumed 40% 75% Weight 72 kg Patient Weight 12/23/16 23:59 Weight 72 kg - General physical appearance no distress - Neck Neck exam: no masses, trachea midline, no lymphadectomy - Respiratory normal expansion (Patient has diminished breath sounds bilaterally.), normal respiratory effort - Cardiovascular Cardiovascular exam: Present: RRR, no murmurs/rubs/gallops - Abdomen Abdomen: Present: bowel sounds present, soft, non tender - Incision Incision: Present: red (Patient has a large incision extending up his left leg. Incision is stapled.There is some redness going up his left leg. No signs of drainage or infection. Area is clean and dry.) Consult Discharge Plan - Plan Referrals: Mark Crowder MD [Partnered Physician] - 01/03/17 4:05 pm [facility] [Primary Care Provider] - (PATIENT IS HOME BASE C[facility], THEY GO TO HIS HOUSE TO SEE HIM)
--- NOTE | 2016-12-23 11:12 | Vascular/End[facility]as Progress Note ---
Date of Encounter: 12/23/16 Time of Encounter: 09:35 - Assessment and plan (1) Peripheral vascular disease Current Visit: Yes Status: Chronic The patient is postoperative day #1 after his left lower extremity bypass. His foot is warm with pedal signals. His compartments are soft and his incision is healing. He will continue with pain control and progressive ambulation. - Subjective Interval history: The patient reports that his foot feels better since surgery. He states that it is warm. His pain has resolved. He reports some parasthesia along the incision and left leg. He denies chest pain or shortness of breath. Vital Signs, Last 4 Hours Pulse 12/23/16 08:18 54 - Physical Examination General: Present: Conversant, No Apparent Distress Cardiac: Present: Reg Rate and Rhythm Lungs: Present: Normal Breath Sounds Neuro: Present: Alert and responsive, Motor nerves grossly intact, Sensory nerves grossly intact (decreased light touch sensation left leg) Vascular: Present: Normal capillary refill, Pulse, normal, Surgical incisions ( incision clean, dry and intact without erythema or drainage), Other ( compartments soft, no pain with passive or active motion). Absent: Cyanosis, Edema Consult Discharge Plan - Plan Referrals: Mark Crowder MD [Partnered Physician] - 01/03/17 4:05 pm [facility] [Primary Care Provider] - (PATIENT IS HOME BASE CARE, THEY GO TO HIS HOUSE TO SEE HIM)
[2016-12-23] MEDS: Ringers Solution, Lactated 1,000 ML IVC SCH (15:14)
[2016-12-24] MEDS: Ketorolac 15 MG/ML VIAL IVP SCH ×4 (00:52→17:34)
[2016-12-24] MEDS: *HR* OxyCODONE Immed Rel 15 MG TABLET PO SCH ×5 (00:52→19:26)
[2016-12-24] MEDS: *HR* Heparin 5,000 UNIT/ML VIAL SQ SCH ×2 (06:31→17:34)
[2016-12-24] MEDS: *HR* HYDROmorphone (PF) 1 MG/ML SYRINGE IVP PRN (06:32)
[2016-12-24] MEDS: Budesonide/Formoterol 160/4.5 MDI IH SCH ×2 (07:59→20:36)
[2016-12-24] MEDS: Tiotropium 18 MCG inhalation IH SCH (07:59)
[2016-12-24] MEDS: Aspirin Enteric Coated 81 MG Tablet PO SCH (08:04)
[2016-12-24] MEDS: Lisinopril 20 MG TABLET PO SCH (08:04)
[2016-12-24] MEDS: Gabapentin 300 MG CAPSULE PO SCH ×3 (08:04→21:14)
[2016-12-24] MEDS: Albuterol 2.5 MG/3 ML NEBULIZER IH SCH ×3 (08:04→22:25)
[2016-12-24] MEDS: Furosemide 20 MG TABLET PO SCH (08:04)
--- NOTE | 2016-12-24 14:02 | Vascular/End[facility]as Progress Note ---
Date of Encounter: 12/24/16 Time of Encounter: 11:00 - Assessment and plan (1) Peripheral vascular disease Status: Chronic The patient is postoperative day #1 after his left lower extremity bypass. His foot is warm with pedal signals. His compartments are soft and his incision is healing. He will continue with pain control and progressive ambulation. (2) Chronic anemia Status: Acute The patient has chronic anemia with acute expected postoperative blood loss anemia. He is hemodynamically stable without evidence of ongoing blood loss. - Subjective Interval history: The patient reports that his foot feels better since surgery. He states that it is warm. His pain has resolved. He reports some parasthesia along the incision and left leg. He denies chest pain or shortness of breath. Vital Signs, Last 4 Hours Temp Pulse Resp BP Pulse Ox 12/24/16 12:04 98.4 F 81 16 155/82 97 12/24/16 11:35 60 - Physical Examination General: Present: Conversant HEENT: Present: Pupils equal Cardiac: Present: Reg Rate and Rhythm Lungs: Present: Normal Breath Sounds Neuro: Present: Alert and responsive, No focal deficits noted Vascular: Present: Normal capillary refill, Pulse, normal (pedal signals polyphasic), Surgical incisions (clean, dry and intact without erythema or drainage, no hematoma). Absent: Cyanosis, Edema Abdomen: Present: Soft Results 12/25/16 09:23 12/25/16 09:23 Consult Discharge Plan - Plan Instructions: Peripheral Vascular Disorders (DC) Additional Instructions: General Surgical Discharge Instructions 1. No pushing, pulling, or lifting greater than 15 lbs for 6 weeks. 2. You may shower beginning today, but no tub baths, soaking, or swimming for 2 weeks. 3. You may resume driving when you are off narcotics and are safe to react in a car. 4. Given home chronic pain regimen with oxycodone, no additional narcotics are prescribed at discharge. Take narcotics as directed. Do not take more narcotics then directed and do not share your narcotics with any other person. Do not drink alcohol while on narcotics. 5. Take stool softeners (Colace) or a water based laxative (Miralax) while taking narcotics. You may hold for loose stools. 6. Report any fevers greater than 100.5F, increase abdominal discomfort, drainage that looks like pus, increased redness or pain at the surgical site, or any vomiting. 7. Report any pain in the calves, shortness of breath, or rapid heartbeat. 8. Follow-up in the office as directed. 9. If you were prescribed antibiotics, do not stop them without talking to your provider. Referrals: Mark Crowder MD [Partnered Physician] - 01/03/17 4:05 pm [facility],PCP [Primary Care Provider] - (PATIENT IS GOING TO [facility] NO PCP APPOINTMENT NEEDED)
[2016-12-25] MEDS: Ketorolac 15 MG/ML VIAL IVP SCH ×2 (00:15→06:25)
[2016-12-25] MEDS: *HR* OxyCODONE Immed Rel 15 MG TABLET PO SCH ×2 (02:09→08:14)
[2016-12-25] MEDS: *HR* Heparin 5,000 UNIT/ML VIAL SQ SCH (06:26)
[2016-12-25 07:38] VITALS: BP 148/76
[2016-12-25] MEDS: Gabapentin 300 MG CAPSULE PO SCH (08:14)
[2016-12-25] MEDS: Aspirin Enteric Coated 81 MG Tablet PO SCH (08:14)
[2016-12-25] MEDS: Lisinopril 20 MG TABLET PO SCH (08:15)
[2016-12-25] MEDS: Furosemide 20 MG TABLET PO SCH (08:15)
[2016-12-25] MEDS: Albuterol 2.5 MG/3 ML NEBULIZER IH SCH (08:22)
[2016-12-25] MEDS: Budesonide/Formoterol 160/4.5 MDI IH SCH (08:24)
[2016-12-25] MEDS: Tiotropium 18 MCG inhalation IH SCH (08:24)
[2016-12-25 09:32] LABS: Basophils % 0.5 %; Eosinophils # 0.3 K/mcL (0.0-0.6); Eosinophils % 3.9 %; Hematocrit 30.4 % (37.5-50.1); Hemoglobin 9.8 g/dL (12.9-16.9); Immature Granulocytes % 0.2 % (0-4); Lymphocytes # 2.1 K/mcL (0.6-4.6); Lymphocytes % 32.5 %; Mean Corpuscular HGB Conc 32.2 g/dL (31.6-35.5); Mean Corpuscular Hemoglobin 31.4 pg (28.0-33.3); Mean Corpuscular Volume 97.4 fL (83.0-100.0); Mean Platelet Volume 9.6 fL (9.4-12.4); Monocytes # 0.5 K/mcL (0.0-1.3); Monocytes % 8.2 %; Neutrophils # 3.5 K/mcL (1.6-8.9); Platelet Count 194 K/mcL (140-400); Red Blood Count 3.12 M/mcL (4.19-5.50); Red Cell Distribution Width 12.3 % (11.5-14.5); Segmented Neutrophils % 54.7 %
[2016-12-25 09:44] LABS: BUN/Creatinine Ratio 24 (6-26); Blood Urea Nitrogen 25 mg/dL (8-26); Calcium 8.4 mg/dL (8.6-10.8); Carbon Dioxide 29 mEq/L (19-29); Chloride 109 mEq/L (98-109); Glucose 151 mg/dL (70-99); Osmolality,Calculated 305 (280-300); Potassium 4.2 mEq/L (3.5-4.5); Sodium 144 mEq/L (136-145); eGFR For African Americans > 60 (> 60); eGFR For Non-African Americans > 60 (> 60)
--- NOTE | 2016-12-25 10:05 | Discharge Summary ---
<Sophy Olmstead - Last Filed: 12/26/16 13:18> Date of Encounter: 12/26/16 Time of Encounter: 09:00 - Discharge Diagnosis (1) Ischemia of extremity Priority: Primary Status: Resolved (2) Need for follow up care after discharge from healthcare facility Priority: Secondary Status: Acute (3) Chronic pain Priority: Secondary Status: Chronic Qualifiers: Chronic pain type: other chronic pain Qualified Code(s): G89.29 - Other chronic pain (4) DVT prophylaxis Priority: Secondary Status: Acute (5) Physical deconditioning Priority: Secondary Status: Acute - Discharge Medications Home Medications: Albuterol Neb [Proventil Neb] 2.5 mg IH Q8H 07/21/16 [History] Albuterol Sulfate [Albuterol Inhaler] 2 puff IH QID PRN 07/21/16 [History] Ammonium Lactate [Macarena-Hydrolac] 1 appl TP DAILY 07/21/16 [History] Aspirin Enteric Coated [Aspirin EC] 81 mg PO DAILY 07/21/16 [History] Bisacodyl [Dulcolax] 10 mg PO TID PRN 07/21/16 [History] Budesonide/Formoterol 160/4.5 [Symbicort 160/4.5] 2 puff IH BIDR 07/21/16 [ History] Diclofenac Sodium [Voltaren] 2 gm TP BID PRN 07/21/16 [History] Furosemide [Lasix] 20 mg PO DAILY 07/21/16 [History] Gabapentin [Neurontin] 600 mg PO TID 07/21/16 [History] Lisinopril [Zestril] 40 mg PO DAILY 07/21/16 [History] Oxycodone HCl [Roxicodone 30 MG Immed Release] 30 mg PO 5XD 07/21/16 [History] Sildenafil Citrate [Viagra] 100 mg PO AD PRN 07/21/16 [History] Tamsulosin [Flomax] 0.8 mg PO DAILY 07/21/16 [History] Tiotropium [Spiriva] 18 mcg IH QAM 07/21/16 [History] Chlorhexidine Rinse 15 ml MM BID 12/21/16 [History] Cholecalciferol (Vitamin D3) [Vitamin D3] 1,000 unit PO DAILY 12/21/16 [History] Clopidogrel [Plavix] 75 mg PO DAILY 12/21/16 [History] Nitroglycerin [Nitrolingual] 0.4 ml TL Q5M PRN 12/21/16 [History] Allergies/Adverse Reactions: 3 Allergy/AdvReac Type Severity Reaction Status Date / Time fentanyl Allergy Fatigued Verified 12/21/16 08:13 morphine Allergy Fatigued Verified 12/21/16 08:13 Date of admission: 12/21/16 15:11 [facility] Consults: 12/21/16 13:35 Consult to Occupational Therapy [CONS] Routine Comment: Evaluate, develop and implement POC Reason for Consult: ambulation and rehab evaluation Consult to Physical Therapy [CONS] Routine Comment: Evaluate, develop and implement POC Reason for Consult: ambulation 12/21/16 16:51 Consult to Restaurant Attendant [CONS] Routine Reason for SW Consult: Possible need for rehab Procedure(s) Performed: Date of procedure: 12/21/16 Pre-op diagnosis: Ischemic left lower extremity Post-op diagnosis: same Procedure: Left femoral tibial in situ bypass Discharging clinician: Mark Olmstead) Anticipated date of discharge: 12/25/16 - Patient Status Disposition: Transfer [facility] Condition: Good Functional capacity at discharge: uses cane/walker Overall status at discharge: patient is progressing back to baseline - Discharge Instructions Instructions: Peripheral Vascular Disorders (DC) Follow Up With: Mark Crowder MD [Partnered Physician] - 01/03/17 4:05 pm [facility],PCP [Primary Care Provider] - (PATIENT IS GOING TO [facility] NO PCP APPOINTMENT NEEDED) Additional Instructions: General Surgical Discharge Instructions 1. No pushing, pulling, or lifting greater than 15 lbs for 6 weeks. 2. You may shower beginning today, but no tub baths, soaking, or swimming for 2 weeks. 3. You may resume driving when you are off narcotics and are safe to react in a car. 4. Given home chronic pain regimen with oxycodone, no additional narcotics are prescribed at discharge. Take narcotics as directed. Do not take more narcotics then directed and do not share your narcotics with any other person. Do not drink alcohol while on narcotics. 5. Take stool softeners (Colace) or a water based laxative (Miralax) while taking narcotics. You may hold for loose stools. 6. Report any fevers greater than 100.5F, increase abdominal discomfort, drainage that looks like pus, increased redness or pain at the surgical site, or any vomiting. 7. Report any pain in the calves, shortness of breath, or rapid heartbeat. 8. Follow-up in the office as directed. 9. If you were prescribed antibiotics, do not stop them without talking to your provider. - Diet and Activity Activity: as per physical therapy, increase activity as tolerated Diet: advance to your usual diet - Hospital Course Hospital course: Mr. Hancock is a 76 year old male presented on 12/21/16 for ischemic left lower extremity. He was taken to the operating room where he underwent a left femoral tibial in situ bypass on 12/21/[address] Crowder. The remainder of his hospital course was unremarkable. He was evaluated by PT/OT for mobilization and discharge planning and was recommended inpatient rehabilitation at the [facility]. His vital signs are stable. He is tolerating irregular diet without nausea or vomiting. We will begin discharge planning to the [facility] with a follow-up in the office in approximately 2 to 4 weeks. He is recommended to continue ASA and Plavix daily Given his chronic narcotic use, he was not prescribed an outpatient narcotic. Time spent discussing smoking cessation with patient: more than 10 minutes - Time Spent with Patient Total time spent providing and/or coordinating discharge services: Greater than 30 minutes Exam Vital Signs, Last 4 Hours Temp Pulse Resp BP Pulse Ox 12/25/16 08:26 16 90 12/25/16 07:35 98.6 F 60 18 148/76 97 Exam: VITAL SIGNS: Reviewed. GENERAL: In no apparent distress. HEAD: No signs of head trauma. EYES: Pupils are equal. Extraocular motions intact. EARS: Hearing grossly intact. MOUTH: Oropharynx is normal. NECK: No adenopathy, no JVD. CHEST: Chest with decreased bilateral breath sounds CARDIAC: RRR, S1, S2 noted. 2/6 systolic murmur RSB. VASCULAR: LLE Edema. Distal pulses are intact. LLE surgical incisions are clean, dry, and intact. ABDOMEN: Soft, without detectable tenderness. No sign of distention. No rebound or guarding, and no masses palpated. Bowel Sounds normal. MUSCULOSKELETAL: Good range of motion of all major joints. NEUROLOGIC EXAM: Alert and oriented x 3. No focal sensory or strength deficits. Speech normal. Follows commands. PSYCHIATRIC: Mood normal. SKIN: No rash or lesions. - VTE Documentation of Mechanical Device: Intermittent pneumatic compression device <Mark Crowder - Last Filed: 12/26/16 16:14> Date of Encounter: 12/26/16 Date of admission: 12/21/16 15:11 [facility] Consults: 12/21/16 13:35 Consult to Occupational Therapy [CONS] Routine Comment: Evaluate, develop and implement POC Reason for Consult: ambulation and rehab evaluation Consult to Physical Therapy [CONS] Routine Comment: Evaluate, develop and implement POC Reason for Consult: ambulation 12/21/16 16:51 Consult to Restaurant Attendant [CONS] Routine Reason for SW Consult: Possible need for rehab - Hospital Course Hospital course: Mr. Hancock is a 76 year old male - Time Spent with Patient Total time spent providing and/or coordinating discharge services: - Attending Attestation I have personally performed a face to face evaluation on this patient. I have reviewed and agree with the care plan. History and Exam by me shows: The patient is seen and evaluated on morning rounds. He has palpable pulses in his foot and is ready for discharge to the [facility] for occupational and physical therapy. Mark Crowder MD FACS
--- NOTE | 2016-12-25 10:13 | Physician Discharge Referral ---
ExtendedCare Referral Info Transfer To: [facility] Provider in Charge: Dr. Mark Crowder Provider in Charge after Transfer: Other ([facility] director of nurses registry) Institutional Level of Care: Intermediate - Diagnosis (1) Ischemia of extremity Priority: Primary Status: Resolved (2) Need for follow up care after discharge from healthcare facility Priority: Secondary Status: Acute (3) Chronic pain Priority: Secondary Status: Chronic (4) DVT prophylaxis Priority: Secondary Status: Acute (5) Physical deconditioning Priority: Secondary Status: Acute Expected Duration of Placement: Less than 30 days Prognosis: Good Aware of Diagnosis: Patient Aware of Prognosis: Patient - Transfer Medications Home Medications: Albuterol Neb [Proventil Neb] 2.5 mg IH Q8H 07/21/16 [History] Albuterol Sulfate [Albuterol Inhaler] 2 puff IH QID PRN 07/21/16 [History] Ammonium Lactate [Macarena-Hydrolac] 1 appl TP DAILY 07/21/16 [History] Aspirin Enteric Coated [Aspirin EC] 81 mg PO DAILY 07/21/16 [History] Bisacodyl [Dulcolax] 10 mg PO TID PRN 07/21/16 [History] Budesonide/Formoterol 160/4.5 [Symbicort 160/4.5] 2 puff IH BIDR 07/21/16 [ History] Diclofenac Sodium [Voltaren] 2 gm TP BID PRN 07/21/16 [History] Furosemide [Lasix] 20 mg PO DAILY 07/21/16 [History] Gabapentin [Neurontin] 600 mg PO TID 07/21/16 [History] Lisinopril [Zestril] 40 mg PO DAILY 07/21/16 [History] Oxycodone HCl [Roxicodone 30 MG Immed Release] 30 mg PO 5XD 07/21/16 [History] Sildenafil Citrate [Viagra] 100 mg PO AD PRN 07/21/16 [History] Tamsulosin [Flomax] 0.8 mg PO DAILY 07/21/16 [History] Tiotropium [Spiriva] 18 mcg IH QAM 07/21/16 [History] Chlorhexidine Rinse 15 ml MM BID 12/21/16 [History] Cholecalciferol (Vitamin D3) [Vitamin D3] 1,000 unit PO DAILY 12/21/16 [History] Clopidogrel [Plavix] 75 mg PO DAILY 12/21/16 [History] Nitroglycerin [Nitrolingual] 0.4 ml TL Q5M PRN 12/21/16 [History] Allergies/Adverse Reactions: 3 Allergy/AdvReac Type Severity Reaction Status Date / Time fentanyl Allergy Fatigued Verified 12/21/16 08:13 morphine Allergy Fatigued Verified 12/21/16 08:13 - Respiratory Orders None Smoking Cessation: Smoking cessation has been advised. For more information, call the [employer] Quit Line at 2-115-IMVY-NOW. - Ancillary Orders May use pressure relief devices daily prn, May go on BO w/family/respon republican w /meds at nurse discretion PRN, May consult with Dentist, Twisting Frame Changer, Cigar Packer And Picker PRN - Advance Directives Living Will: No Power of Boring Mill Set Up Operator: No Code Status: Full Code - Mobility Orders Ambulate - Rehabiliation Orders Rehab Potential: Good Rehab Orders: ROM Exercises, Evaluation for Physical Therapy, Evaluation for Occupational Therapy Other: General Surgical Discharge Instructions 1. No pushing, pulling, or lifting greater than 15 lbs for 6 weeks. 2. You may shower beginning today, but no tub baths, soaking, or swimming for 2 weeks. 3. You may resume driving when you are off narcotics and are safe to react in a car. 4. Given home chronic pain regimen with oxycodone, no additional narcotics are prescribed at discharge. Take narcotics as directed. Do not take more narcotics then directed and do not share your narcotics with any other person. Do not drink alcohol while on narcotics. 5. Take stool softeners (Colace) or a water based laxative (Miralax) while taking narcotics. You may hold for loose stools. 6. Report any fevers greater than 100.5F, increase abdominal discomfort, drainage that looks like pus, increased redness or pain at the surgical site, or any vomiting. 7. Report any pain in the calves, shortness of breath, or rapid heartbeat. 8. Follow-up in the office as directed. 9. If you were prescribed antibiotics, do not stop them without talking to your provider. - Treatments List/Other: General Surgical Discharge Instructions 1. No pushing, pulling, or lifting greater than 15 lbs for 6 weeks. 2. You may shower beginning today, but no tub baths, soaking, or swimming for 2 weeks. 3. You may resume driving when you are off narcotics and are safe to react in a car. 4. Given home chronic pain regimen with oxycodone, no additional narcotics are prescribed at discharge. Take narcotics as directed. Do not take more narcotics then directed and do not share your narcotics with any other person. Do not drink alcohol while on narcotics. 5. Take stool softeners (Colace) or a water based laxative (Miralax) while taking narcotics. You may hold for loose stools. 6. Report any fevers greater than 100.5F, increase abdominal discomfort, drainage that looks like pus, increased redness or pain at the surgical site, or any vomiting. 7. Report any pain in the calves, shortness of breath, or rapid heartbeat. 8. Follow-up in the office as directed. 9. If you were prescribed antibiotics, do not stop them without talking to your provider. 10. Incisions may be left open to air or covered with a dry dressing for comfort. - Diet Orders Regular CERTIFICATION: I certify that the transfer of the above named patient to an Extended Care Facility is necessary for the continuing treatment of the diagnosis listed. The above information is true and accurate reflection of patient's current condition. Confidential - Redisclosure prohibited without a patient's written consent.
== END 2016-12-25 11:08 | DRG 253 ==
LOC: SAMDAY 07:53 → 2NNU 15:11
PROVIDERS: ADMIT Surgery; ATTEND Surgery